=== PATIENT | female | born 1960 | race Caucasian/White ===

== ENCOUNTER → 2021-01-30 | Outpatient (REF) ==
[2021-01-30 12:04] LABS: POTASSIUM 4.5 mmol/L (3.5-5.1)
[2021-01-30 12:05] LABS: CALCIUM 8.3 mg/dL (8.3-10.5)
[2021-01-30 12:12] LABS: MAGNESIUM 2.81 mg/dL (1.60-2.60)
== END ==
LOC: LAB 09:14
PROVIDERS: Internal Medicine Pulmonary Disease
DX: Z01.89 Encounter for other specified special examinations (principal)